=== PATIENT | female | born 1965 | race Caucasian/White ===

== ENCOUNTER → 2024-06-09 11:25 | Outpatient (REF) | payer OTHER, SELFPAY | LOC: HWRAD 11:25 | PROVIDERS: ATTENDING PHYSICIAN Nurse Practitioner | DX: R59.9 Enlarged lymph nodes, unspecified (principal) | CPT/HCPCS: 76536 ==

== ENCOUNTER → 2024-06-23 15:04 | Outpatient (REF) | payer OTHER, SELFPAY | LOC: CLAB 15:04 | PROVIDERS: ATTENDING PHYSICIAN Otolaryngology | DX: K11.9 Disease of salivary gland, unspecified (principal) | CPT/HCPCS: 88173 ==

== ENCOUNTER 2024-07-19 06:14 | Day surgery (SDC) | payer OTHER, SELFPAY ==
[2024-07-19 07:12] VITALS: BMI 28.0
[2024-07-19 07:18] VITALS: BMI 28.0
[2024-07-19] MEDS: NORMOSOL-R/PLASMALYTE-A 1000 IV (07:43)
--- NOTE | 2024-07-19 07:53 | PTCARENOTE ---
Smoking cessation information done with patient. Patient receptive to it. Will monitor patient.
[2024-07-19 07:59] VITALS: BP 137/79
[2024-07-19 11:17] VITALS: BP 127/67; BP 137/79
[2024-07-19 11:30] VITALS: BP 121/66
[2024-07-19 11:45] VITALS: BP 131/76
[2024-07-19 12:05] VITALS: BP 118/76
[2024-07-19] MEDS: TYLENOL 650 MG PO (12:16)
[2024-07-19 12:35] VITALS: BP 127/83
== END 2024-07-19 13:25 | disposition home or self-care (01) ==
LOC: SDS 06:14
PROVIDERS: ATTENDING PHYSICIAN Otolaryngology
DX: D11.0 Benign neoplasm of parotid gland (principal)
CPT/HCPCS: 42415; 88307

== ENCOUNTER → 2024-08-05 16:52 | Outpatient (REF) | payer OTHER, SELFPAY | LOC: CLAB 16:52 | PROVIDERS: ATTENDING PHYSICIAN Otolaryngology | DX: D49.0 Neoplasm of unspecified behavior of digestive system (principal) | CPT/HCPCS: 87070; 87205 ==